=== PATIENT | female | born 1980 | race Caucasian/White ===

== ENCOUNTER 2019-07-04 11:39 | Emergency (ER) | payer SELFPAY ==
[~2019-07-04] VITALS: Ht 167.6 cm; Wt 97.5 kg
[~2019-07-04 11:39] MED LIST: GUAI118L3 PO
[2019-07-04 11:50] VITALS: BP 138/89
[2019-07-04] MEDS ORDERED: CLIN300C8 PO (12:00)
--- NOTE | 2019-07-04 12:00 | PHYS DOC ---
Past Medical History Past Medical History: Other Additional Past Medical Histor: "intestinal blockage," staph infection Past Surgical History: No Surgical History Alcohol Use: Occasionally Drug Use: None Adult General Chief Complaint Chief Complaint: FINGER INJURY HPI HPI Patient is a 39 year old female who presents with has 1mm superficial cut to her tip of right middle finger. The patient states that it hurts when she is moving it. She states that this happened on tuesday and is becoming more painful for her and states it looks more swollen than it was. Review of Systems Review of Systems Integument: Superficial cut to right middle tip of finger. Denies rash or skin lesions [] All other systems were reviewed and found to be within normal limits, except as documented in this note. Allergies Allergies Allergies Coded Allergies Type Severity Reaction Last Updated Verified Penicillins Allergy Intermediate 07/22/15 Yes Physical Exam Physical Exam Constitutional: Well developed, well nourished, no acute distress, non-toxic appearance. [] HENT: Normocephalic, atraumatic, bilateral external ears normal, oropharynx moist, no oral exudates, nose normal. [] Eyes: PERRLA, EOMI, conjunctiva normal, no discharge. [] Neck: Normal range of motion, no tenderness, supple, no stridor. [] Cardiovascular:Heart rate regular rhythm, no murmur [] Lungs & Thorax: Bilateral breath sounds clear to auscultation [] Abdomen: Bowel sounds normal, soft, no tenderness, no masses, no pulsatile masses. [] Skin: Right middle tip of finger superficial cut. Warm, dry, no erythema, no rash. [] Back: No tenderness, no CVA tenderness. [] Extremities: No tenderness, no cyanosis, no clubbing, ROM intact, no edema. [] Neurologic: Alert and oriented X 3, normal motor function, normal sensory function, no focal deficits noted. [] Psychologic: Affect normal, judgement normal, mood normal. [] EKG EKG [] Radiology/Procedures Radiology/Procedures [] Course & Med Decision Making Course & Med Decision Making 1mm superficial cut to right tip of middle finger. Slighty open, no drainage, no redness, 1+ edema right around the cut only, no tenderness with palpation. Skin pink warm and dry. No fever. No joint swelling. Full ROM of all finger joints. Radial pulse strong and present. 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 Kristen Disclaimer Kristen Disclaimer This electronic medical record was generated, in whole or in part, using a voice recognition dictation system. Departure Departure Impression: Primary Impression: Superficial laceration of skin Disposition: HOME, SELF-CARE Condition: STABLE Referrals: UNKNOWN PCP NAME (PCP) Patient Instructions: Wound Care, [id number] Additional Instructions: Keep clean, keep covered. apply antibiotic ointment to area 3x a day. Scripts Clindamycin Hcl (CLINDAMYCIN HCL) 300 Mg Capsule 1 CAP PO BID, #[id number] CAP Prov: STUART CAMARGO APRN 07/04/19 STUART CAMARGO FINISH INSPECTOR Jul 04, 2019 12:00
== END 2019-07-04 12:10 | disposition home or self-care (01) ==
LOC: ER 11:39
DX: S61.212A Laceration without foreign body of right middle finger without damage to nail, initial encounter (principal); Z98.890 Other specified postprocedural states; Z88.0 Allergy status to penicillin; X58.XXXA Exposure to other specified factors, initial encounter; Y93.89 Activity, other specified; Y92.89 Other specified places as the place of occurrence of the external cause; Y99.8 Other external cause status
CPT/HCPCS: 99283